=== PATIENT | female | born 1985 | race Caucasian/White ===

== ENCOUNTER 2019-01-09 16:31 | Emergency (ER) | payer OTHER, SELFPAY ==
[2019-01-09 16:33] VITALS: BP 178/108; PULSE 87; RESP 15; TEMP 36.7; O2SAT 100; BMI 23.8
--- NOTE | 2019-01-09 16:42 | ED_ITS ---
HPI - Skin/Abscess/Foreign Bdy <Kaela Mayen PA-C - Last Filed: 01/09/19 22:18> General Chief complaint: Skin/Abscess/Foreign Body Stated complaint: possible allergic reaction,hives and red Time Seen by Provider: 01/09/19 16:41 Source: patient Mode of arrival: ambulatory Limitations: no limitations History of Present Illness HPI narrative: This 33-year-old female comes to ED with acute exacerbation of neck and upper back pain and blotchy red rash. She states that she has sensitive pain and does tend to flush and get red patches with stressors or with pain. She has not noted shortness of breath, facial or lip swelling. She states that she has not taken any new medications nor any diet changes today and suspects that the rash is related to pain. She states that she has been content in with thoracic and neck pain off and on for over a year. She states she saw a chiropractor initially last year in treated with conservative therapy and got better. She states in September she had a ?popped rib? seem to be getting better last couple of months with chiropractic treatment but then started to have more neck and thoracic area pain last month. She has been seeing a chiropractor for that again. She states that she has had numbness in her right hand in the last few weeks since this pain started again, intermittently. She has not noted any weakness, but feels like the numbness has gradually gotten worse including today. She states that she saw a chiropractor today and had an adjustment which did not help as usual and she thinks possibly made things worse. Pain acutely worsened when she was standing up at home today and she describes a muscle spasm type of sensation more on the right side of the neck. She states pain was severe enough at that point that she felt nauseated and like she might pass out. She denies any other injury or new activity today aside from OT, and she did not feel the pain right at the time of adjustment. She denies any new weakness in the extremities, denies any bowel or bladder changes or any other new complaints on systems review. She has Mirena, denies . Related Data Previous Rx's Medication Instructions Recorded cyclobenzaprine 10 mg PO Q8HR #14 tab 01/09/19 lidocaine [Lidoderm] 3 patch TOP DAILY #30 each 01/09/19 meloxicam [Mobic] 15 mg PO DAILY #14 tab 01/09/19 oxycodone-acetaminophen 1 tab PO Q4-6H PRN #10 tab 01/09/19 Allergies Allergy/AdvReac Type Severity Reaction Status Date / Time buspirone Allergy Verified 01/09/19 16:33 Review of Systems <Kaela Mayen PA-C - Last Filed: 01/09/19 22:18> Review of Systems ROS Unobtainable: All systems reviewed & are unremarkable except as noted in HPI and below PFSH <Kaela Mayen PA-C - Last Filed: 01/09/19 22:18> Medical History (Updated 01/09/19 @ 19:42 by Kaela Mayen PA-C) Chronic neck and back pain (Chronic) Surgical History (Updated 01/09/19 @ 17:09 by Kaela Mayen PA-C) Status post (Resolved) Social History (Updated 01/09/19 @ 17:09 by Kaela Mayen PA-C) Smoking Status: Never smoker Social History (Updated 01/09/19 @ 17:09 by Kaela Mayen PA-C) Smoking Status: Never smoker Exam <Kaela Mayen PA-C - Last Filed: 01/09/19 22:18> Narrative Exam Narrative: GENERAL APPEARANCE: Patient appears somewhat uncomfortable but in NAD. HEENT: PERRL, EOMI, no facial or lip edema LUNGS: Clear to auscultation bilaterally. HEART: Rate and rhythm regular without murmur, normal S1 and S2, no S3 or S4. DERMATOLOGIC: Mild patchy erythema noted on the jaw line and neck, no wheals. Resolved at d/c MUSCULOSKELETAL: Tender throughout the mid to inferior cervical spine and mid to upper thoracic spine as well as all of the cervical and right shoulder musculature through the trapezius, most over the cervical paraspinal musculature. She has reduced C-spine range of motion in all swift secondary to tenderness, most with right lateral bend and right rotation. She is able to flex the C-spine almost normally. Full range of motion of the right upper extremity. Upper extremity strength 5/5 throughout bilateral buttonholer, biceps, triceps, shoulder shrug. NEUROLOGIC: Patient is alert and oriented, normal speech, sensation throughout the upper extremities is grossly intact. Upper extremity DTRs 2+ throughout Initial Vital Signs Initial Vital Signs: Vital Signs Temperature 98.0 F 01/09/19 16:33 Pulse Rate 87 01/09/19 16:33 Respiratory Rate 15 01/09/19 16:33 Blood Pressure 178/108 H 01/09/19 16:33 Pulse Oximetry 100 01/09/19 16:33 <Francy Barron DO - Last Filed: 01/10/19 01:07> Initial Vital Signs Initial Vital Signs: Vital Signs Temperature 98.0 F 01/09/19 16:33 Pulse Rate 87 01/09/19 16:33 Respiratory Rate 15 01/09/19 16:33 Blood Pressure 178/108 H 01/09/19 16:33 Pulse Oximetry 100 01/09/19 16:33 Course <Kaela Mayen PA-C - Last Filed: 01/09/19 22:18> Additional Information: Patient is feeling significantly improved at discharge time and has better range of motion. She has had some localized hand tingling, no paresthesia or weakness in the remainder of the upper extremity. She did feel like this worsened after osteopathic manipulation today. She has chronic underlying pain but likely acute spasm. She will continue medications given here for the next few days if needed and follow up with her PCP. Advised to discuss PT referral and whether further workup needed depending upon her progress, but no acute neurologic deficit noted today Orders Ordered: ED Orders 01/09/19 17:09 XR cervical spine 2V or 3V Stat XR thoracic spine 3V Stat Discontinued Medications Cyclobenzaprine HCl (Flexeril) 10 mg PO NOW ONE Stop: 01/09/19 16:56 Last Admin: 01/09/19 17:13 Dose: 10 mg Ketorolac Tromethamine (Toradol) 60 mg IM NOW ONE Stop: 01/09/19 16:56 Last Admin: 01/09/19 17:13 Dose: 60 mg Lidocaine (Lidoderm) 2 each TOP NOW ONE Stop: 01/09/19 18:42 Last Admin: 01/09/19 19:01 Dose: 2 each Oxycodone/Acetaminophen (Percocet 5/325) 2 tab PO NOW ONE Stop: 01/09/19 18:23 Last Admin: 01/09/19 19:00 Dose: 2 tab Vital Signs - 8 hr 01/09/19 18:59 01/09/19 19:59 Pulse Rate 72 70 Respiratory Rate 20 18 Blood Pressure 158/90 H Blood Pressure [Left Arm] 147/82 H Pulse Oximetry 100 99 <Francy Barron DO - Last Filed: 01/10/19 01:07> Orders Ordered: ED Orders 01/09/19 17:09 XR cervical spine 2V or 3V Stat XR thoracic spine 3V Stat Discontinued Medications Cyclobenzaprine HCl (Flexeril) 10 mg PO NOW ONE Stop: 01/09/19 16:56 Last Admin: 01/09/19 17:13 Dose: 10 mg Ketorolac Tromethamine (Toradol) 60 mg IM NOW ONE Stop: 01/09/19 16:56 Last Admin: 01/09/19 17:13 Dose: 60 mg Lidocaine (Lidoderm) 2 each TOP NOW ONE Stop: 01/09/19 18:42 Last Admin: 01/09/19 19:01 Dose: 2 each Oxycodone/Acetaminophen (Percocet 5/325) 2 tab PO NOW ONE Stop: 01/09/19 18:23 Last Admin: 01/09/19 19:00 Dose: 2 tab Vital Signs - 8 hr 01/09/19 18:59 01/09/19 19:59 Pulse Rate 72 70 Respiratory Rate 20 18 Blood Pressure 158/90 H Blood Pressure [Left Arm] 147/82 H Pulse Oximetry 100 99 MDM - Skin/Abscess/Foreign Bdy <Kaela Mayen PA-C - Last Filed: 01/09/19 22:18> Imaging Data Csp: Radiologist's impression: Osiris Poe 33 F 1985 [place] [address] XRay Report Signed Patient: Osiris Poe AMR#: [id number] : 1985Acct:[id number] Age/Sex: 33 / FDate of Service: 01/09/19 Loc: ED Accession Number: [id number] Procedure: XR cervical spine 2V or 3V Ordering Provider: Kaela Mayen P.A-C PROCEDURE: XR CERVICAL SPINE 2V OR 3V INDICATIONS: pain, R. UE paresthesia (worse after neck adjusted) TECHNIQUE: 3 view(s) of the cervical spine were acquired. COMPARISON: [facility], CR, XR THORACIC SPINE 3V, 01/09/2019, 17:24. FINDINGS: Bones: No fractures or dislocations to the T1 level. The lateral masses of C1 appear intact on the odontoid view. No suspicious bony lesions. There is straightening of the normal cervical lordosis. The disc heights are well-preserved. Soft tissues: No prevertebral soft tissue swelling. The visualized lung apices are unremarkable. IMPRESSION: Straightening of the normal cervical lordosis is seen, which is commonly observed in patients with muscular spasm. Dictated by: Perfecto Lee M.D. on 01/09/2019 at 16:44 Approved by: Perfecto Lee M.D. on 01/09/2019 at 16:44 Tsp: Radiologist's impression: [facility] DATE TYPE STATUS AUTHOR Ingrid 01/09/19 17:09 Perfecto Lee 01/09/19 17:09 Perfecto Lee Maggie A 33, F1985 [facility] ER, ED.LOC - Main ED: R06 157.48cm 58.967kg BMI: 23.8kg/m? Skin/Abscess/Foreign Body Search Chart No Data to Display No Data to Display Today 16:33 Osiris Poe 33 F 1985 [place] [address] XRay Report Signed Patient: MichelleLanceOsiris AMR#: [id number] : 1985Acct:[id number] Age/Sex: 33 / FDate of Service: 01/09/19 Loc: ED Accession Number: [id number] Procedure: XR thoracic spine 3V Ordering Provider: Kaela Mayen P.A-C PROCEDURE: XR THORACIC SPINE 3V INDICATIONS: pain, UE paresthesia TECHNIQUE: 3 views of the thoracic spine were acquired. COMPARISON: [facility], CR, XR CERVICAL SPINE 2V OR 3V, 01/09/2019, 17:24. FINDINGS: Bones: No fractures or dislocations. No suspicious bony lesions. 12 pairs of ribs are noted, and appear intact where visualized. Mild dextroconvex scoliotic curvature is seen. Soft tissues: No paravertebral stripe thickening. IMPRESSION: Thoracic spine plain films within normal limits, with note made of mild dextroconvex scoliotic curvature. Dictated by: Perfecto Lee M.D. on 01/09/2019 at 16:43 Approved by: Perfecto Lee M.D. on 01/09/2019 at 16:43 Discharge Plan Departure Patient Disposition: Home Clinical Impression: Muscle spasms of neck Cervical muscle strain Qualifiers: Encounter type: initial encounter Qualified Code(s): S16.1XXA - Strain of muscle, fascia and tendon at neck level, initial encounter Hand paresthesia Qualifiers: Laterality: right Qualified Code(s): R20.2 - Paresthesia of skin Discharge Date/Time: 01/09/19 19:59 Interventions: ED Discharge Assessment Last Done: 01/09/19 19:59 Instructions: DI for Neck Sprain, DI for Muscle Spasm Activity Restrictions/Additional Instructions: Please continue heat or ice as helpful (sometimes people find alternating them helpful). I have prescribed a once daily anti-inflammatory pain reliever called meloxicam for you to try instead of ibuprofen. Please start this in the morning. I have also prescribed the muscle relaxant cyclobenzaprine that you can take every 8 hours if needed. You can try taking half of a tablet if it makes you too sleepy. I have also prescribed topical anesthetic patches for you to place on the most tender areas. You can replace the patches you have tomorrow morning, then use during the daytime (you can leave them on for 12 hours). I have also prescribed a little bit of Percocet for you to use in a ddition to these for the next day or [address] do not drive while using the muscle relaxant and Percocet as they can make you sleepy. Please follow-up with your PCP due to the ongoing pain as you may need a referral for further treatment such as physical therapy and may need additional testing if you are not getting better. You should return about if you have acutely worsening pain, or new symptoms such as weakness in your extremities, or difficulty urinating. Prescriptions: New cyclobenzaprine 10 mg tablet 10 mg PO Q8HR Qty: 14 RF: 0 meloxicam [Mobic] 15 mg tablet 15 mg PO DAILY Qty: 14 RF: 0 oxycodone-acetaminophen 5-325 mg tablet 1 tab PO Q4-6H PRN (Reason: acute neck and back pain) Qty: 10 RF: 0 lidocaine [Lidoderm] 5 % adhesive patch,medicated 3 patch TOP DAILY Qty: 30 RF: 0 Referrals: Azeb Willett MD [Primary Care Provider] - <Francy Barron DO - Last Filed: 01/10/19 01:07> Cosign ED Attending Cosignature Attestation: I was immediately available in the department for consultation. Documentation has been reviewed. I agree with assessment and plan.
--- NOTE | 2019-01-09 17:09 | DI.RAD.S_ITS ---
PROCEDURE: XR CERVICAL SPINE 2V OR 3V INDICATIONS: pain, R. UE paresthesia (worse after neck adjusted) TECHNIQUE: 3 view(s) of the cervical spine were acquired. COMPARISON: [facility], , XR THORACIC SPINE 3V, 01/09/2019, 17:24. FINDINGS: Bones: No fractures or dislocations to the T1 level. The lateral masses of C1 appear intact on the odontoid view. No suspicious bony lesions. There is straightening of the normal cervical lordosis. The disc heights are well-preserved. Soft tissues: No prevertebral soft tissue swelling. The visualized lung apices are unremarkable. IMPRESSION: Straightening of the normal cervical lordosis is seen, which is commonly observed in patients with muscular spasm. Dictated by: Perfecto Lee M.D. on 01/09/2019 at 16:44 Approved by: Perfecto Lee M.D. on 01/09/2019 at 16:44
--- NOTE | 2019-01-09 17:09 | DI.RAD.S_ITS ---
PROCEDURE: XR THORACIC SPINE 3V INDICATIONS: pain, UE paresthesia TECHNIQUE: 3 views of the thoracic spine were acquired. COMPARISON: [facility], CR, XR CERVICAL SPINE 2V OR 3V, 01/09/2019, 17:24. FINDINGS: Bones: No fractures or dislocations. No suspicious bony lesions. 12 pairs of ribs are noted, and appear intact where visualized. Mild dextroconvex scoliotic curvature is seen. Soft tissues: No paravertebral stripe thickening. IMPRESSION: Thoracic spine plain films within normal limits, with note made of mild dextroconvex scoliotic curvature. Dictated by: Perfecto Lee M.D. on 01/09/2019 at 16:43 Approved by: Perfecto Lee M.D. on 01/09/2019 at 16:43
[2019-01-09] MEDS: CYCLOBENZAPRINE 10 MG TABLET PO (17:13)
[2019-01-09] MEDS: KETOROLAC 60 MG/2 ML VIAL IM (17:13)
[2019-01-09 18:59] VITALS: BP 147/82; PULSE 72; RESP 20; O2SAT 100
[2019-01-09] MEDS: OXYCODONE/ACETAMINOPHEN 5/325 TABLET 2 TAB PO (19:00)
[2019-01-09] MEDS: LIDOCAINE PATCH 1 EACH ADH..PATCH 2 EACH TOP (19:01)
[2019-01-09 19:59] VITALS: BP 158/90; PULSE 70; RESP 18; O2SAT 99
== END 2019-01-09 19:59 | disposition home or self-care (01) ==
PROVIDERS: Emergency Provider Internal Medicine; PCP Family Medicine
DX: S16.1XXA Strain of muscle, fascia and tendon at neck level, initial encounter (principal); M54.9 Dorsalgia, unspecified; R20.2 Paresthesia of skin; R21 Rash and other nonspecific skin eruption; R11.0 Nausea; R55 Syncope and collapse
CPT/HCPCS: 72040; 72072; 96372; 99283; J1885

== ENCOUNTER → 2021-01-13 11:12 | Outpatient (CLI) | payer OTHER, SELFPAY ==
[2021-01-13] MEDS: COVID-19 VACC, Ad26(JANSSEN)/PF 0.5 ML IM (11:19)
== END ==
PROVIDERS: PCP Family Medicine; Visit Provider Internal Medicine
DX: Z23 Encounter for immunization (principal)
CPT/HCPCS: 0031A; 91303

== ENCOUNTER → 2022-03-23 11:23 | Outpatient (CLI) | payer OTHER, SELFPAY ==
[2022-03-23 12:15] LABS: COVID19 -Nasal RAPID Negative (Negative)
== END ==
PROVIDERS: PCP Family Medicine; Visit Provider Obstetrics & Gynecology
DX: Z20.822 Contact with and (suspected) exposure to COVID-19 (principal); Z01.812 Encounter for preprocedural laboratory examination
CPT/HCPCS: 87635

== ENCOUNTER 2022-03-24 08:28 | Day surgery (SDC) | payer OTHER, SELFPAY ==
[2022-03-23 12:57] VITALS: BMI 26.5
[2022-03-24] VITALS (7 sets, daily range): BP systolic 119–141; BP diastolic 68–84; PULSE 56–92; RESP 12–16; TEMP 36.7–37; O2SAT 96–99; BMI 26.5
--- NOTE | 2022-03-24 | PATH_ITS ---
[facility] Accession Number: [id number] No. of containers..02 Tissue . 01 Material submitted: . PART A: cervix - LEEP CONE CUT @ 12 PART B: endocervix - ENDOCERVICAL CURETTINGS . 01 Clinical history: . SDC HIGH GRADE SQUAMOUS INTRAEPITHELIAL LESION ON CYTO . 01 Diagnosis: A. LEEP Cone Cut at 12 o'clock: Focal high-grade squamous intraepithelial lesion / CAMILLE-2 involves the 12 to 3 o'clock and 6 to 9 o'clock quadrants. Patchy low-grade squamous intraepithelial lesion / CAMILLE-1 involves the 3 to 6 o'clock, 6 to 9 o'clock and 9 to 12 o'clock quadrants. The apparent ectocervical margin is negative for dysplasia. The apparent endocervical margin is negative for dysplasia. Changes suggestive of previous instrumentation are present. No invasive tumor identified. . B. Endocervical Curettings: Scant endocervical tissue fragments and strips of endocervical glandular epithelium; negative for glandular dysplasia or malignancy. Avulsed portion of atypical squamous epithelium; cannot completely exclude involvement by low grade squamous intraepithelial lesion / CAMILLE-1. [facility] 03/29/2022 1524 Local . 01 Comment: The biopsy results correlate with Pap smear [id number]. . 01 Electronically signed: . Francoise Daigle MD, Pathologist NPI- [id number] . 01 Gross description: . A. Received in formalin, labeled with the patient's name and designated 1. LEEP cone cut at 12, is a 2.5 x 2.1 cm cervical cone, excised to a depth up to 1.3 cm, received oriented, opened at 12 o'clock. The endocervical margin is inked yellow, and the remaining ectocervical margin is inked blue. The ectocervical mucosa is dull, burns, and minimally roughened. No discrete mass is identified. The specimen is radially sectioned, and the specimen is entirely submitted as follows: A1: 12-3 o'clock. A2: 3-6 o'clock. A3: 6-9 o'clock. A4: 9-12 o'clock. B. Received in formalin, labeled with the patient's name and designated 2. Endocervical curettings, is a 1.5 x 0.2 x 0.1 cm aggregate of minute, friable, hemorrhagic tissue fragments, entirely submitted in cassette B1. (LOVELY:[id number]) /[facility]R 03/25/2022 1821 Local . 01 Pathologist provided ICD-10: R87.613, N87.1, N87.0 . 01 CPT . 169438, [id number] Specimen Comment: A courtesy copy of this report has been sent to [phone] Performed at: 01 [facility] [address] [place] [address], [place], [place] [id number] MD Jin Ramirez MD Phone: [phone]
[2022-03-24] MEDS: ACETAMINOPHEN 325 MG TABLET 650 MG PO (09:08)
[2022-03-24] MEDS: LACTATED RINGERS 1,000 ML 42 ML IV ×2 (09:09→11:01)
--- NOTE | 2022-03-24 09:25 | PM.PREOP ---
Pre-operative Note COVID-19 COVID-19 status: Negative Result date/Date tested (Pos, Neg/Pending): 03/23/22 Criteria for continued procedure: Non-surgical alternatives not available or appropriate per current SOC Interval Note History & Physical reviewed/Exam performed by Physician: Yes Changes to H&P: No
--- NOTE | 2022-03-24 10:33 | SUR.OPER ---
Lithotomy on padded OR bed, head on pillow, arms secured on padded arm boards at <90 degrees abduction. Legs secured in padded yellow fins stirrups. Approved by surgeon
[2022-03-24] MEDS: FERRIC SUBSULFATE 8 GM SOLUTION 8 ML TOP (10:40)
--- NOTE | 2022-03-24 10:44 | P.OP_ITS ---
Operative Date/Time/Diagnoses Date of procedure: 03/24/22 Time of procedure: 10:10 Pre-op diagnosis: High-grade squamous intraepithelial lesion of the cervix (CAMILLE 2) Post-op diagnosis: same Procedure & Clinicians Procedure: Procedures Operation Date: 03/24/22 09:45 Actual Procedure Side Surgeon p LEEP Procedure Zac Khalil MD Indications: Osiris is a 36-year-old (11 yo twin boys)?LMP several years ago due Mirena IUD in situ admitted for LEEP w/ HGSIL (CIN2) on colposcopically directed biopsi es showed HGSIL positive high-risk HPV.? She presents today for her scheduled surgery. Surgeon: Zac Khalil Anesthesia Type: General Operative Notes Findings: Extensive area of AW be on the anterior lip of the cervix and extending laterally at 10:00 a.m.. All areas of abnormality were either excised or destroyed with electrocautery. IUD strings were tucked up into the upper endocervical canal at the begin of the case and retrieved easily following completion of the procedure. Closure Type: not applicable Specimen(s): other (LEEP cone, cut at 12:00, ECC ) Estimated blood loss (mL): 5 Blood products transfused: none Procedure in detail: With patient under satisfactory general anesthesia in the modified dorsal lithotomy position, external genitalia were prepped with Betadine and preparations made for LEEP. A pre-surgical safety time-out was then taken in accordance with [facility] Main OR protocols. An insulated speculum was placed in the vagina and the cervix visualized. The IUD strings were or moved upward into the upper aspects of the endocervical canal with a packing forceps. The cervix was immersed in vinegar and the areas of aceto-white epithelium were identified. Using a 20 mm x 15 mm loop, 50 w pure cut, a LEEP was performed in the usual manner and the specimen was submitted as a LEEP cone cut at 12:00 p.m.. ECC was then performed and a separate ECC specimen submitted for pathologic evaluation. Electric cautery of the cone bed was carried out with a ball electrode resulting in complete hemostasis. Small areas of remaining aceto-white epithelium lateral to the LEEP margins were fulgurated with electrocautery and at the completion of the surgery there were no remaining areas of aceto-white epithelium on the portio of the cervix. Monsel's solution was also applied to the bed prior to bringing the IUD strings back down and out through the external os. The speculum was removed from the vagina and the patient awakened from anesthesia. She was then transferred to the PACU for a period of observation and recovery. Complications: none Post-operative Condition: stable Disposition: PACU Plan for aftercare: Routine postoperative care with follow-up appointment scheduled for 2 weeks postop.
[2022-03-24] MEDS: ACETIC ACID 500 ML IRRIG 20 ML TOP (10:48)
[2022-03-24] MEDS: fentaNYL 100 MCG/2 ML INJ IV (10:59)
--- NOTE | 2022-03-24 11:24 | SUR.PHASEI ---
1120: Pt A&Ox4, denies any discomfort, no drainage, and ready to transfer to phase 2 nursing. Report given to receiving RN using SBAR with time allowed for questions. Care transferred to MAURICIO Garcia
--- NOTE | 2022-03-24 12:08 | SUR.PHASEII ---
1120 stated that she was not feeling well, thought that it was due to hunger. Given applecause and string cheese - immediately felt much better after applesauce, smiling, and stated that she felt ready to go home. To phase II
--- NOTE | 2022-03-24 14:04 | SUR.PHASEI ---
Late entry 1120: LR total intake: Completed one bag from OR = 1000 mL plus an additional 150 mL
== END 2022-03-24 11:46 | disposition home or self-care (01) ==
PROVIDERS: PCP Family Medicine; Referring Provider Obstetrics & Gynecology; Visit Provider Obstetrics & Gynecology
PROC: 0UBC7ZZ Excision of Cervix, Via Natural or Artificial Opening (ICD-10-PCS; CPT 57522; principal; 2022-03-24 09:45)
DX: N87.1 Moderate cervical dysplasia (principal); F41.9 Anxiety disorder, unspecified
CPT/HCPCS: 57522; A9270; J1100; J2250; J2405; J2704; J3010

== ENCOUNTER → 2022-07-11 07:54 | Outpatient (CLI) | payer OTHER, SELFPAY ==
[2022-07-11 09:41] LABS: Add Manual Diff / Slide Review NO; Basophils Absolute Auto 0 /uL (0-100); Basophils Percent Auto 0.4 % (0-2); Eosinophils Absolute Auto 0 /uL (0-450); Eosinophils Percent Auto 0.6 % (2-4); Hematocrit 41.7 % (36-46); Hemoglobin 14.2 g/dL (12.0-16.0); Lymphocytes Absolute Auto 1500 /uL (1100-4500); Lymphocytes Percent Auto 32.6 % (25-40); Mean Corpuscular Hemoglobin 33.6 PG (26-34); Mean Corpuscular Volume 98.7 fL (80-100); Monocytes Absolute Auto 400 /uL (0-900); Monocytes Percent Auto 8.6 % (3-14); Neutrophils Absolute Auto 2700 /uL (1500-7000); Neutrophils Percent Auto 57.8 % (50-75); Platelet Count 282 X10^3/uL (150-400); Red Blood Cell Count 4.23 X10^6/uL (4.0-5.2); White Blood Cell Count 4.7 X10^3/uL (4.5-11.0)
[2022-07-11 10:30] LABS: Alanine Aminotransferase 18 IU/L (<35); Albumin 4.6 g/dL (3.5-5.0); Albumin Globulin Ratio 1.6 (1.0-2.8); Alkaline Phosphatase 51 U/L (38-126); Aspartate Aminotransferase 24 IU/L (14-36); BUN Creatinine Ratio 19.2 (6-22); Bilirubin Total 0.9 mg/dL (0.2-1.3); Blood Urea Nitrogen 14 mg/dL (7-17); Carbon Dioxide 25 mmol/L (22-32); Chloride 100 mmol/L (98-107); Cholesterol 172 mg/dL (140-199); Estimated Glomerular Filt Rate > 60 mL/min (>60); Globulin 2.8 g/dL (1.7-4.1); Glucose 83 mg/dL (70-100); HDL Cholesterol 82 mg/dL (40-60); HEMOLYSIS < 15 (0-50); LDL Cholesterol Calculated 73 mg/dL (<100); Potassium 4.3 mmol/L (3.4-5.1); Sodium 135 mmol/L (137-145); Total Protein 7.4 g/dL (6.3-8.2); Triglycerides 85 mg/dL (35-150)
[2022-07-11 10:58] LABS: TSH w/ Reflex to FT4 2.29 uIU/mL (0.47-4.68)
[2022-07-11 14:59] LABS: Microalbumin Urine Random 0.6 mg/dL (0-1.6)
[2022-07-11 15:00] LABS: Creatinine Urine Random 109.4 mg/dL; Microalbumi Creatinin Ratio Ur 5.4 ug/mg CR (<30)
== END ==
PROVIDERS: PCP Family Medicine; Referring Provider Family Medicine; Visit Provider Family Medicine
DX: F41.9 Anxiety disorder, unspecified (principal); I10 Essential (primary) hypertension
CPT/HCPCS: 36415; 80053; 80061; 82043; 82570; 84443; 85025

== ENCOUNTER → 2023-10-18 08:20 | Outpatient (CLI) | payer OTHER, SELFPAY ==
[2023-10-18 09:41] LABS: Add Manual Diff / Slide Review NO; Basophils Absolute Auto 0 /uL (0-100); Basophils Percent Auto 0.4 % (0-2); Eosinophils Absolute Auto 0 /uL (0-450); Eosinophils Percent Auto 0.6 % (2-4); Hematocrit 40.3 % (36-46); Hemoglobin 13.9 g/dL (12.0-16.0); Lymphocytes Absolute Auto 1600 /uL (1100-4500); Lymphocytes Percent Auto 32.4 % (25-40); Mean Corpuscular HGB Conc 34.5 % (30-36); Mean Corpuscular Volume 98.6 fL (80-100); Monocytes Absolute Auto 500 /uL (0-900); Monocytes Percent Auto 10.9 % (3-14); Neutrophils Absolute Auto 2800 /uL (1500-7000); Neutrophils Percent Auto 55.7 % (50-75); Platelet Count 306 X10^3/uL (150-400); Red Blood Cell Count 4.09 X10^6/uL (4.0-5.2); Red Cell Distribution Width 11.9 % (11.6-14.8)
[2023-10-18 10:24] LABS: Alanine Aminotransferase 26 IU/L (<35); Albumin 4.6 g/dL (3.5-5.0); Albumin Globulin Ratio 1.5 (1.0-2.8); Alkaline Phosphatase 46 U/L (38-126); Aspartate Aminotransferase 28 IU/L (14-36); BUN Creatinine Ratio 16.9 (6-22); Bilirubin Total 0.9 mg/dL (0.2-1.3); Blood Urea Nitrogen 11 mg/dL (7-17); Calcium 9.7 mg/dL (8.4-10.2); Carbon Dioxide 29 mmol/L (22-32); Chloride 95 mmol/L (98-107); Cholesterol 172 mg/dL (140-199); Estimated Glomerular Filt Rate > 60 mL/min (>60); Glucose 94 mg/dL (70-100); HDL Cholesterol 73 mg/dL (40-60); HEMOLYSIS < 15 (0-50); LDL Cholesterol Calculated 85 mg/dL (<100); Potassium 3.9 mmol/L (3.4-5.1); Sodium 135 mmol/L (137-145); Total Protein 7.6 g/dL (6.3-8.2); Triglycerides 70 mg/dL (35-150)
[2023-10-18 10:43] LABS: Microalbumin Urine Random < 0.6 mg/dL (0-1.6)
[2023-10-18 10:48] LABS: TSH w/ Reflex to FT4 1.74 uIU/mL (0.47-4.68)
== END ==
PROVIDERS: PCP Family Medicine; Referring Provider Family Medicine; Visit Provider Family Medicine
DX: I10 Essential (primary) hypertension (principal); F41.9 Anxiety disorder, unspecified; E87.1 Hypo-osmolality and hyponatremia
CPT/HCPCS: 36415; 80053; 80061; 82043; 82570; 84443; 85025

== ENCOUNTER → 2024-12-12 12:53 | Outpatient (CLI) | payer OTHER, SELFPAY ==
--- NOTE | 2024-12-12 12:55 | DI.MG.S_ITS ---
MM screening mammo BI: 12/12/2024. BI-RADS: 1 CLINICAL: 39-year old female for bilateral screening mammogram. Tyrer-Cuzick lifetime risk of 9.0%. No personal or first-degree family history of breast cancer. PRIOR EXAMS No prior examinations available. MAMMOGRAPHY TECHNIQUE: 2D and 3D (tomosynthesis) digital mammographic views obtained, with additional images as needed for full coverage. Current study was also evaluated with a Computer Aided Detection (CAD) system. DENSITY C. The breasts are heterogeneously dense, which may obscure small masses. MAMMOGRAPHY FINDINGS Bilateral: No suspicious mass, asymmetry, microcalcification, or other abnormality seen. IMPRESSION: * No evidence of malignancy. RECOMMENDATIONS Bilateral * Annual screening mammography. OVERALL ASSESSMENT CATEGORY BI-RADS-1: Negative. [employer] recommends annual screening mammography beginning at age 40 for women with average risk of breast cancer. ELECTRONICALLY SIGNED: Maicol Howard M.D. on 12/13/2024 at 07:48:57 AM PT Interpreting Station ID: [id number]
== END ==
PROVIDERS: PCP Family Medicine; Referring Provider Family Medicine; Visit Provider Family Medicine
DX: Z12.31 Encounter for screening mammogram for malignant neoplasm of breast (principal); R92.333 Mammographic heterogeneous density, bilateral breasts
CPT/HCPCS: 77063; 77067

== ENCOUNTER → 2025-04-23 07:06 | Outpatient (CLI) | payer OTHER, SELFPAY ==
[2025-04-23 07:46] LABS: Add Manual Diff / Slide Review NO; Hematocrit 37.8 % (36-46); Hemoglobin 13.2 g/dL (12.0-16.0); Lymphocytes Absolute Auto 1900 /uL (1100-4500); Mean Corpuscular HGB Conc 35.0 % (30-36); Mean Corpuscular Hemoglobin 34.0 PG (26-34); Mean Corpuscular Volume 97.1 fL (80-100); Platelet Count 315 X10^3/uL (150-400)
[2025-04-23 08:00] LABS: Alanine Aminotransferase 23 IU/L (<35); Albumin 4.7 g/dL (3.5-5.0); Albumin Globulin Ratio 1.9 (1.0-2.8); Alkaline Phosphatase 57 U/L (38-126); Blood Urea Nitrogen 16 mg/dL (7-17); Calcium 9.5 mg/dL (8.4-10.2); Carbon Dioxide 28 mmol/L (22-32); Chloride 100 mmol/L (98-107); Cholesterol 175 mg/dL (140-199); Estimated Glomerular Filt Rate > 60 mL/min (>60); Globulin 2.5 g/dL (1.7-4.1); Glucose 86 mg/dL (70-99); HDL Cholesterol 83 mg/dL (40-60); HEMOLYSIS < 15 (0-50); Potassium 4.1 mmol/L (3.4-5.1); Sodium 136 mmol/L (137-145); Total Protein 7.2 g/dL (6.3-8.2); Triglycerides 38 mg/dL (35-150)
[2025-04-23 08:30] LABS: TSH w/ Reflex to FT4 1.45 uIU/mL (0.47-4.68)
== END ==
PROVIDERS: PCP Family Medicine; Referring Provider Family Medicine; Visit Provider Family Medicine
DX: Z00.00 Encounter for general adult medical examination without abnormal findings (principal); I10 Essential (primary) hypertension; M54.2 Cervicalgia; M54.9 Dorsalgia, unspecified; G89.29 Other chronic pain; F41.9 Anxiety disorder, unspecified
CPT/HCPCS: 36415; 80053; 80061; 84443; 85025